=== PATIENT | male | born 1995 | race Caucasian/White ===

== ENCOUNTER 2016-12-25 10:56 | Emergency (ER) | payer MEDICAID ==
[~2016-12-25] VITALS: Ht 170.2 cm; Wt 111.1 kg
[2016-12-25 11:50] LABS: CALCIUM 8.8 mg/dL (8.5-10.1); CARBON DIOXIDE 22.5 mmol/L (21-32); CHLORIDE SERUM 103 mmol/L (98-107); GFR1 > 60 mL/min; GLUCOSE SERUM 105 mg/dL (74-106); SODIUM SERUM 138 mmol/L (136-145)
[2016-12-25 11:54] LABS: ALBUMIN 4.1 g/dL (3.4-5.0); ALKALINE PHOSPHATASE 99 U/L (46-116); ALT/SGPT 135 U/L (16-63); AST/SGOT 65 U/L (15-37); BASOPHIL % 0.6 % (0-2); BILIRUBIN TOTAL 0.89 mg/dL (0.20-1.00); MAGNESIUM 2.1 mg/dL (1.8-2.4); PLATELET COUNT 292 x10^3mcL (130-400); RED CELL DISTRIBUTION WIDTH 13.9 % (11.5-14.5); TOTAL PROTEIN, SERUM 8.1 g/dL (6.4-8.2)
[2016-12-25 12:53] VITALS: BP 132/71
== END 2016-12-25 13:07 | disposition home or self-care (01) ==
LOC: ED 10:56
PROVIDERS: Emergency Medicine
DX: G44.209 Tension-type headache, unspecified, not intractable (principal); G47.00 Insomnia, unspecified; R03.0 Elevated blood-pressure reading, without diagnosis of hypertension
CPT/HCPCS: 20552; J2001; J2405; J3490

== ENCOUNTER 2017-09-01 21:15 | Emergency (ER) | payer SELFPAY ==
[2017-09-01 23:22] VITALS: BP 136/90
== END 2017-09-01 23:22 | disposition home or self-care (01) ==
LOC: ED 21:15
DX: S62.324A Displaced fracture of shaft of fourth metacarpal bone, right hand, initial encounter for closed fracture (principal); G47.00 Insomnia, unspecified; W22.8XXA Striking against or struck by other objects, initial encounter; Y93.89 Activity, other specified; Y99.8 Other external cause status; Y92.89 Other specified places as the place of occurrence of the external cause

== ENCOUNTER 2018-05-23 18:21 | Emergency (ER) | payer MEDICAID ==
[2018-05-23 18:28] VITALS: Ht 170.2 cm
[2018-05-23 20:47] VITALS: BP 129/78
== END 2018-05-23 20:47 | disposition home or self-care (01) ==
LOC: ED 18:21
DX: S20.211A Contusion of right front wall of thorax, initial encounter (principal); S46.001A Unspecified injury of muscle(s) and tendon(s) of the rotator cuff of right shoulder, initial encounter; V49.88XA Car occupant (driver) (passenger) injured in other specified transport accidents, initial encounter; Y93.I9 Activity, other involving external motion; Y92.413 State road as the place of occurrence of the external cause; Y99.8 Other external cause status
CPT/HCPCS: J1885

== ENCOUNTER 2020-01-23 16:25 | Emergency (ER) | payer MEDICAID ==
[~2020-01-23] VITALS: Ht 175.3 cm; Wt 108.9 kg
[2020-01-23 16:34] VITALS: BP 149/107; Ht 175.3 cm; Wt 108.9 kg
== END 2020-01-23 17:09 | disposition home or self-care (01) ==
LOC: ED 16:25
DX: S13.9XXA Sprain of joints and ligaments of unspecified parts of neck, initial encounter (principal); X58.XXXA Exposure to other specified factors, initial encounter; Y93.89 Activity, other specified; Y92.89 Other specified places as the place of occurrence of the external cause; Y99.8 Other external cause status